=== PATIENT | male | born 1970 | race Caucasian/White ===

== ENCOUNTER 2021-04-20 12:40 | Emergency (ER) | payer OTHER | END 2021-04-20 14:40 | disposition home or self-care (01) | LOC: FER 12:40 | DX: S06.0X9A Concussion with loss of consciousness of unspecified duration, initial encounter (principal); S40.012A Contusion of left shoulder, initial encounter; E11.638 Type 2 diabetes mellitus with other oral complications; Z79.84 Long term (current) use of oral hypoglycemic drugs; W01.10XA Fall on same level from slipping, tripping and stumbling with subsequent striking against unspecified object, initial encounter; Y92.69 Other specified industrial and construction area as the place of occurrence of the external cause; Y99.0 Civilian activity done for income or pay | CPT/HCPCS: 70450; 73030 ==